=== PATIENT | female | born 1970 | race American Indian/Alaskan Native ===

== ENCOUNTER 2020-05-28 01:31 | Emergency (ER) | payer OTHER ==
[~2020-05-28 01:31] MED LIST: EPINEPHrine 1 MG/10 ML SYRINGE ONE; SODIUM BICARB 8.4% 50 MEQ/50 ML SYRINGE IV ONE
[2020-05-28] MEDS ORDERED: NORepinephrine/NS 4 MG-250 ML 4 MG/250 ML BAG IV SCH (01:45)
[2020-05-28] MEDS ORDERED: SODIUM CHLORIDE 0.9% 1000 ML 1,000 ML IV ONE (01:55)
[2020-05-28] MEDS ORDERED: LIP THERAPY VASELINE TP PRN (02:07)
[2020-05-28] MEDS ORDERED: MINERAL OIL/PETROLATUM, WHITE OPHTH OINT 3.5 GM OU PRN (02:07)
[2020-05-28] MEDS ORDERED: EPINEPHrine 1 MG/1 ML 8 MG in SODIUM CHLORIDE 0.9% 250ML 242 ML IV ONE (02:18)
--- NOTE | 2020-05-28 02:25 | Emergency Department Report ---
HPI - General Chief Complaint: Cardiac Arrest/CPR Time Seen by Provider: 05/28/20 02:06 - HPI HPI: This is a 50-year-old -[place] female presents to the emergency department from home in cardiac arrest. Apparently the patient is bedbound and that the patient was witnessed to go unresponsive just prior to the EMS call. EMS found the patient pulseless and apneic. They initiated ACLS protocol. She was intubated, and intraosseous line was placed, and the patient received chest compressions. She received 2 rounds of epinephrine and 1 round of sodium bicarbonate. There was no return of spontaneous circulation and the patient was in PEA. She has a past medical history of hypertension, end-stage renal disease on hemodialysis, diabetes, and cardiomyopathy. ED Past Medical Hx - Past Medical History Hx Hypertension: Yes Hx Congestive Heart Failure: Yes Hx Diabetes: Yes Hx Asthma: No Hx COPD: No Additional medical history: CAD - Surgical History Hx Coronary Stent: Yes - Social History Smoking Status: Never Smoker - Medications Home Medications: Home Medications Medication Instructions Recorded Confirmed Last Taken Type Amoxicillin/K Clav Tab [Augmentin 1 each PO Q12HR #10 tablet 08/24/13 Unknown Rx 875MG TAB] Insulin Aspart Prot/Aspart(Nf) 14 units SUB-Q QPM 30 Days units 08/24/13 Unknown Rx [NovoLOG Mix 70/30 VIAL] Insulin Aspart Prot/Aspart(Nf) 20 units SUB-Q QAM 30 Days units 08/24/13 Unknown Rx [NovoLOG Mix 70/30 VIAL] Saccharomyces Boulardii (Nf) 250 mg PO Q12HR #30 capsule 08/24/13 Unknown Rx [Florastor] lisinopriL [Zestril TAB] 2.5 mg PO QDAY #30 tablet 08/24/13 Unknown Rx oxyCODONE /ACETAMINOPHEN [Percocet 1 tab PO Q6H PRN #14 tablet 08/24/13 Unknown Rx 5/325 mg] ED Review of Systems ROS: Stated complaint: CARDIAC ARREST Other details as noted in HPI Comment: Unobtainable due to pts medical conditions Physical Exam - Physical Exam Physical Exam: GENERAL: Patient is ill-appearing and unresponsive. HENT: Normocephalic. Atraumatic. EYES: Pupils are fixed and dilated. NECK: Supple. Trachea appears midline. CHEST/LUNGS: There are no spontaneous respirations. HEART/CARDIOVASCULAR: There are no spontaneous heart sounds. ABDOMEN: Abdomen is soft. There is no abdominal distention. SKIN: Skin is cool but dry. NEURO: Unresponsive. Does not withdraw to painful stimuli. Does not follow any commands. MUSCULOSKELETAL: There is no obvious deformity. There is no evidence of acute injury. No palpable femoral or radial pulses. ED Course - Reevaluation(s) Reevaluation #1: 05/28/20 06:30 Lab Results 05/28/20 05/28/20 05/28/20 Range/Units 03:11 04:33 Unknown WBC 27.8 H (4.5-11.0) K/mm3 RBC 3.07 L (3.65-5.03) M/mm3 Hgb 9.0 L (10.1-14.3) gm/dl Hct 31.8 (30.3-42.9) % MCV 104 H (79-97) fl MCH 29 (28-32) pg MCHC 28 L (30-34) % RDW 18.5 H (13.2-15.2) % Plt Count 113 L (140-440) K/mm3 Add Manual Diff Complete Total Counted 100 Seg Neuts % (Manual) 79.0 H (40.0-70.0) % Band Neutrophils % 6.0 % Lymphocytes % (Manual) 9.0 L (13.4-35.0) % Reactive Lymphs % (Man) 0 % Monocytes % (Manual) 4.0 (0.0-7.3) % Eosinophils % (Manual) 1.0 (0.0-4.3) % Basophils % (Manual) 0 (0.0-1.8) % Metamyelocytes % 1.0 % Myelocytes % 0 % Promyelocytes % 0 % Blast Cells % 0 % Nucleated RBC % 2.0 H (0.0-0.9) % Seg Neutrophils # Man 22.0 H (1.8-7.7) K/mm3 Band Neutrophils # 1.7 K/mm3 Lymphocytes # (Manual) 2.5 (1.2-5.4) K/mm3 Abs React Lymphs (Man) 0.0 K/mm3 Monocytes # (Manual) 1.1 H (0.0-0.8) K/mm3 Eosinophils # (Manual) 0.3 (0.0-0.4) K/mm3 Basophils # (Manual) 0.0 (0.0-0.1) K/mm3 Metamyelocytes # 0.3 K/mm3 Myelocytes # 0.0 K/mm3 Promyelocytes # 0.0 K/mm3 Blast Cells # 0.0 K/mm3 WBC Morphology Not Reportable Hypersegmented Neuts Not Reportable Hyposegmented Neuts Not Reportable Hypogranular Neuts Not Reportable Smudge Cells Not Reportable Toxic Granulation Not Reportable Toxic Vacuolation Not Reportable Dohle Bodies Not Reportable Pelger-Huet Anomaly Not Reportable Umair Rods Not Reportable Platelet Estimate Consistent w auto Clumped Platelets Not Reportable Plt Clumps, EDTA Not Reportable Large Platelets Not Reportable Giant Platelets Not Reportable Platelet Satelliting Not Reportable Plt Morphology Comment Not Reportable RBC Morphology Not Reportable Dimorphic RBCs Not Reportable Polychromasia Not Reportable Hypochromasia 1+ Poikilocytosis Not Reportable Anisocytosis 1+ Microcytosis Not Reportable Macrocytosis 1+ Spherocytes Rare Pappenheimer Bodies Not Reportable Sickle Cells Not Reportable Target Cells Few Tear Drop Cells Not Reportable Ovalocytes Not Reportable Helmet Cells Not Reportable Zamora-Elmo Bodies Not Reportable [place] Rings Not Reportable Ward Cells Not Reportable Bite Cells Not Reportable Crenated Cell Not Reportable Elliptocytes Not Reportable Acanthocytes (Spur) Not Reportable Rouleaux Not Reportable Hemoglobin C Crystals Not Reportable Schistocytes Not Reportable Malaria parasites Not Reportable Amanuel Bodies Not Reportable Hem Pathologist Commnt No PT (12.2-14.9) Sec. INR (0.87-1.13) APTT (24.2-36.6) Sec. ABG pH 7.013 L (7.320-7.450) POC ABG pCO2 39.2 (32.0-48.0) mmHg POC ABG pO2 313.9 H (83-108) mmHg POC ABG HCO3 9.7 POC ABG Base Excess -20.3 ABG Hemoglobin 10.4 L (12.0-17.5) ABG Sodium 139.4 (136.0-145.0) mmol/L ABG Potassium 4.9 H (3.40-4.50) mmol/L ABG Chloride 98.0 (98-107) mmol/L ABG Glucose < 65 L (65-95) mg/dL FiO2 100 Sodium (137-145) mmol/L Potassium (3.6-5.0) mmol/L Chloride (98-107) mmol/L Carbon Dioxide (22-30) mmol/L Anion Gap mmol/L BUN (7-17) mg/dL Creatinine (0.6-1.2) mg/dL Estimated GFR ml/min BUN/Creatinine Ratio % Glucose (65-100) mg/dL Lactic Acid 25.70 H* (0.7-2.0) mmol/L Calcium (8.4-10.2) mg/dL Total Bilirubin (0.1-1.2) mg/dL AST (5-40) units/L ALT (7-56) units/L Alkaline Phosphatase (35-129) units/L Ammonia (25-60) umol/L Troponin T (0.00-0.029) ng/mL Total Protein (6.3-8.2) g/dL Albumin (3.9-5) g/dL Albumin/Globulin Ratio % Triglycerides (2-149) mg/dL Cholesterol (50-199) mg/dL LDL Cholesterol Direct (50-130) mg/dL HDL Cholesterol (40-59) mg/dL Cholesterol/HDL Ratio % TSH (0.270-4.200) mlU/mL Arterial Blood Glucose < 65 L (65-95) mg/dL Arterial Blood Ionized Calcium 4.2 L (4.6-5.3) mg/dL Plasma/Serum Alcohol (0-0.07) % 05/28/20 05/28/20 05/28/20 Range/Units Unknown Unknown Unknown WBC (4.5-11.0) K/mm3 RBC (3.65-5.03) M/mm3 Hgb (10.1-14.3) gm/dl Hct (30.3-42.9) % MCV (79-97) fl MCH (28-32) pg MCHC (30-34) % RDW (13.2-15.2) % Plt Count (140-440) K/mm3 Add Manual Diff Total Counted Seg Neuts % (Manual) (40.0-70.0) % Band Neutrophils % % Lymphocytes % (Manual) (13.4-35.0) % Reactive Lymphs % (Man) % Monocytes % (Manual) (0.0-7.3) % Eosinophils % (Manual) (0.0-4.3) % Basophils % (Manual) (0.0-1.8) % Metamyelocytes % % Myelocytes % % Promyelocytes % % Blast Cells % % Nucleated RBC % (0.0-0.9) % Seg Neutrophils # Man (1.8-7.7) K/mm3 Band Neutrophils # K/mm3 Lymphocytes # (Manual) (1.2-5.4) K/mm3 Abs React Lymphs (Man) K/mm3 Monocytes # (Manual) (0.0-0.8) K/mm3 Eosinophils # (Manual) (0.0-0.4) K/mm3 Basophils # (Manual) (0.0-0.1) K/mm3 Metamyelocytes # K/mm3 Myelocytes # K/mm3 Promyelocytes # K/mm3 Blast Cells # K/mm3 WBC Morphology Hypersegmented Neuts Hyposegmented Neuts Hypogranular Neuts Smudge Cells Toxic Granulation Toxic Vacuolation Dohle Bodies Pelger-Huet Anomaly Umair Rods Platelet Estimate Clumped Platelets Plt Clumps, EDTA Large Platelets Giant Platelets Platelet Satelliting Plt Morphology Comment RBC Morphology Dimorphic RBCs Polychromasia Hypochromasia Poikilocytosis Anisocytosis Microcytosis Macrocytosis Spherocytes Pappenheimer Bodies Sickle Cells Target Cells Tear Drop Cells Ovalocytes Helmet Cells Zamora-Elmo Bodies [place] Rings Ward Cells Bite Cells Crenated Cell Elliptocytes Acanthocytes (Spur) Rouleaux Hemoglobin C Crystals Schistocytes Malaria parasites Amanuel Bodies Hem Pathologist Commnt PT 21.3 H (12.2-14.9) Sec. INR 1.80 H (0.87-1.13) APTT 55.4 H (24.2-36.6) Sec. ABG pH (7.320-7.450) POC ABG pCO2 (32.0-48.0) mmHg POC ABG pO2 (83-108) mmHg POC ABG HCO3 POC ABG Base Excess ABG Hemoglobin (12.0-17.5) ABG Sodium (136.0-145.0) mmol/L ABG Potassium (3.40-4.50) mmol/L ABG Chloride (98-107) mmol/L ABG Glucose (65-95) mg/dL FiO2 Sodium 140 (137-145) mmol/L Potassium 4.5 (3.6-5.0) mmol/L Chloride 91.5 L (98-107) mmol/L Carbon Dioxide 12 L (22-30) mmol/L Anion Gap 41 mmol/L BUN 54 H (7-17) mg/dL Creatinine 4.4 H (0.6-1.2) mg/dL Estimated GFR 13 ml/min BUN/Creatinine Ratio 12 % Glucose 48 L (65-100) mg/dL Lactic Acid 19.30 H* (0.7-2.0) mmol/L Calcium 8.9 (8.4-10.2) mg/dL Total Bilirubin 4.40 H (0.1-1.2) mg/dL AST 110 H (5-40) units/L ALT 36 (7-56) units/L Alkaline Phosphatase 1164 H (35-129) units/L Ammonia (25-60) umol/L Troponin T 0.258 H* (0.00-0.029) ng/mL Total Protein 7.2 (6.3-8.2) g/dL Albumin 2.1 L (3.9-5) g/dL Albumin/Globulin Ratio 0.4 % Triglycerides 85 (2-149) mg/dL Cholesterol 164 (50-199) mg/dL LDL Cholesterol Direct 14 L (50-130) mg/dL HDL Cholesterol 22 L (40-59) mg/dL Cholesterol/HDL Ratio 7.45 % TSH (0.270-4.200) mlU/mL Arterial Blood Glucose (65-95) mg/dL Arterial Blood Ionized Calcium (4.6-5.3) mg/dL Plasma/Serum Alcohol (0-0.07) % 05/28/20 05/28/20 05/28/20 Range/Units Unknown Unknown Unknown WBC (4.5-11.0) K/mm3 RBC (3.65-5.03) M/mm3 Hgb (10.1-14.3) gm/dl Hct (30.3-42.9) % MCV (79-97) fl MCH (28-32) pg MCHC (30-34) % RDW (13.2-15.2) % Plt Count (140-440) K/mm3 Add Manual Diff Total Counted Seg Neuts % (Manual) (40.0-70.0) % Band Neutrophils % % Lymphocytes % (Manual) (13.4-35.0) % Reactive Lymphs % (Man) % Monocytes % (Manual) (0.0-7.3) % Eosinophils % (Manual) (0.0-4.3) % Basophils % (Manual) (0.0-1.8) % Metamyelocytes % % Myelocytes % % Promyelocytes % % Blast Cells % % Nucleated RBC % (0.0-0.9) % Seg Neutrophils # Man (1.8-7.7) K/mm3 Band Neutrophils # K/mm3 Lymphocytes # (Manual) (1.2-5.4) K/mm3 Abs React Lymphs (Man) K/mm3 Monocytes # (Manual) (0.0-0.8) K/mm3 Eosinophils # (Manual) (0.0-0.4) K/mm3 Basophils # (Manual) (0.0-0.1) K/mm3 Metamyelocytes # K/mm3 Myelocytes # K/mm3 Promyelocytes # K/mm3 Blast Cells # K/mm3 WBC Morphology Hypersegmented Neuts Hyposegmented Neuts Hypogranular Neuts Smudge Cells Toxic Granulation Toxic Vacuolation Dohle Bodies Pelger-Huet Anomaly Umair Rods Platelet Estimate Clumped Platelets Plt Clumps, EDTA Large Platelets Giant Platelets Platelet Satelliting Plt Morphology Comment RBC Morphology Dimorphic RBCs Polychromasia Hypochromasia Poikilocytosis Anisocytosis Microcytosis Macrocytosis Spherocytes Pappenheimer Bodies Sickle Cells Target Cells Tear Drop Cells Ovalocytes Helmet Cells Zamora-Elmo Bodies [place] Rings [place] Cells Bite Cells Crenated Cell Elliptocytes Acanthocytes (Spur) Rouleaux Hemoglobin C Crystals Schistocytes Malaria parasites Amanuel Bodies Hem Pathologist Commnt PT (12.2-14.9) Sec. INR (0.87-1.13) APTT (24.2-36.6) Sec. ABG pH (7.320-7.450) POC ABG pCO2 (32.0-48.0) mmHg POC ABG pO2 (83-108) mmHg POC ABG HCO3 POC ABG Base Excess ABG Hemoglobin (12.0-17.5) ABG Sodium (136.0-145.0) mmol/L ABG Potassium (3.40-4.50) mmol/L ABG Chloride (98-107) mmol/L ABG Glucose (65-95) mg/dL FiO2 Sodium (137-145) mmol/L Potassium (3.6-5.0) mmol/L Chloride (98-107) mmol/L Carbon Dioxide (22-30) mmol/L Anion Gap mmol/L BUN (7-17) mg/dL Creatinine (0.6-1.2) mg/dL Estimated GFR ml/min BUN/Creatinine Ratio % Glucose (65-100) mg/dL Lactic Acid (0.7-2.0) mmol/L Calcium (8.4-10.2) mg/dL Total Bilirubin (0.1-1.2) mg/dL AST (5-40) units/L ALT (7-56) units/L Alkaline Phosphatase (35-129) units/L Ammonia 502.0 H (25-60) umol/L Troponin T (0.00-0.029) ng/mL Total Protein (6.3-8.2) g/dL Albumin (3.9-5) g/dL Albumin/Globulin Ratio % Triglycerides (2-149) mg/dL Cholesterol (50-199) mg/dL LDL Cholesterol Direct (50-130) mg/dL HDL Cholesterol (40-59) mg/dL Cholesterol/HDL Ratio % TSH 8.270 H (0.270-4.200) mlU/mL Arterial Blood Glucose (65-95) mg/dL Arterial Blood Ionized Calcium (4.6-5.3) mg/dL Plasma/Serum Alcohol < 0.01 (0-0.07) % - Central Line Placement Right Femoral Consent Obtained: emergent situation Time Out Performed: Yes Patient Placed on Monitor/Pulse Ox: Yes Prep: mask, gown, gloves Central Line Prep: Chlorhexidine scrub Ultrasound Used for Placement: Yes Central Line Lumen Inserted: triple Bloods Obtained for Lab: Yes Central Line Position: good blood return, all ports aspirated, flus, sutured in place with nyl Dressing Applied: Tegaderm, sterile gauze/tape Patient Tolerated Procedure: well Complications: none ED Medical Decision Making - Lab Data Result diagrams: 05/28/20 Unknown 05/28/20 Unknown - EKG Data -: EKG Interpreted by Me - EKG Data Interpretation: other (Atrial fibrillation at 111 bpm, PVCs, left axis deviation, incomplete right bundle branch block and left anterior fascicular block, Q waves to the anteroseptal leads) - Radiology Data Radiology results: report reviewed Chest single view INDICATION: Dyspnea. IMPRESSION: Endotracheal tube terminates about 4 cm above the bhargav. Esophagogastric tube terminates within the upper stomach. PermCath terminates in the SVC/right atrial junction. The lungs are grossly clear. Cardiomegaly. - Medical Decision Making This patient presents to the emergency department in cardiac arrest after she complained of shortness of breath throughout the day and then appeared in distress and went unresponsive in front of family. Patient was intubated by EMS and an intraosseous line was placed and they began ACLS protocol. There was no return of spontaneous circulation in route. The patient came to our emergency department and was placed in bed/room 21 where we continued ACLS protocol including bag valve ventilation, chest compressions. The patient was given a dose of epinephrine, sodium bicarbonate, and calcium and we got return of spontaneous circulation. Immediately upon ROSC, I placed a right femoral central venous catheter EKG showed atrial fibrillation but no morphology consistent with ST elevation myocardial infarction. Chest x-ray was done that did not show any obvious signs of pneumonia, pleural effusions, and there was no pneumothorax. The patient's labs show multiple abnormalities. There is a leukocytosis of 27,000. Anemia with a hemoglobin of 9. Some mild thrombocytopenia with platelets of 113. She has renal insufficiency consistent with her end-stage renal disease on hemodialysis. There is elevated ammonia level, alk phos. The patient has a lactic acidosis with a lactic acid of 19, and then later 25. She has an elevated troponin level. Patient has been in the emergency department for about 4.5 hours and there have been many episodes in which the patient went pulseless and we did ACLS protocol. The patient received multiple rounds of epinephrine, sodium bicarbonate, calcium. She arrived on dobutamine. Eventually the patient was on dobutamine, Levophed, epinephrine and vasopressin drips. I spoke to the patient's multiple times throughout her ED course and explained the critical nature of this patient. He was given a chance to come and see her at bedside. Overall I believe the patient had 9 different episodes in which she went pulseless and we did ACLS protocol and there was ROSC. The patient was in PEA until the very last pulseless episode, in which she was in asystole. Pupils were fixed and dilated. There are no spontaneous heart or breath sounds. I used the bedside ultrasound and there was no movement or squeeze of the heart. Time of was called at 0548. Critical Care Time: Yes Critical care time in (mins) excluding proc time.: 80 Critical care attestation.: If time is entered above; I have spent that time in minutes in the direct care of this critically ill patient, excluding procedure time. Critical care time is spent on this patient in doing her initial evaluation, multiple reevaluations, supervision of ACLS protocol, ordering and interpretation of labs and imaging, treatment of her hypotension with multiple different vasopressors, multiple discussions with the patient's . This does not include the time spent doing the central line procedure. Critical Care Time: 80 minutes ED Disposition Clinical Impression: Cardiac arrest, Lactic acidosis, ESRD on hemodialysis, Elevated troponin Acute respiratory failure Qualifiers: Respiratory failure complication: unspecified whether with hypoxia or hypercapnia Qualified Code(s): J96.00 - Acute respiratory failure, unspecified whether with hypoxia or hypercapnia Leukocytosis Qualifiers: Leukocytosis type: unspecified Qualified Code(s): D72.829 - Elevated white blood cell count, unspecified Disposition: DC-20 Is pt being admited?: No Time of Disposition: 06:30
--- NOTE | 2020-05-28 02:35 | XRay Report ---
Chest single view INDICATION: Dyspnea. IMPRESSION: Endotracheal tube terminates about 4 cm above the bhargav. Esophagogastric tube terminates within the upper stomach. PermCath terminates in the SVC/right atrial junction. The lungs are grossl y clear. Cardiomegaly. Signer Name: Nura Parsons MD Signed: 05/28/2020 2:30 AM Workstation Name: [id number]
[2020-05-28 02:51] LABS: Mean Corpuscular HGB Conc 28 % (30-34); Mean Corpuscular Volume 104 fl (79-97); Platelet Count 113 K/mm3 (140-440); Red Blood Count 3.07 M/mm3 (3.65-5.03); Red Cell Distribution Width 18.5 % (13.2-15.2)
[2020-05-28 02:54] LABS: Hematocrit 31.8 % (30.3-42.9)
[2020-05-28 03:01] LABS: INR 1.8 (0.87-1.13)
[2020-05-28 03:02] LABS: Partial Thromboplastin Time 55.4 Sec. (24.2-36.6)
[2020-05-28 03:16] LABS: Albumin 2.1 g/dL (3.9-5); Calcium 8.9 mg/dL (8.4-10.2)
[2020-05-28] MEDS ORDERED: DEXTROSE 50% IN WATER (25GM) 50 ML SYRINGE IV ONE ×2 (03:30→03:33)
[2020-05-28] MEDS ORDERED: VASOPRESSIN 20 UNIT in SODIUM CHLORIDE 0.9% 100 ML IV SCH (05:00)
[2020-05-28] MEDS ORDERED: SODIUM CHLORIDE 0.9% 1000 ML 1,000 ML ONE (05:18)
[2020-05-28 05:49] VITALS: BP 64/44
[2020-05-28 05:57] LABS: Chol/HDL Ratio 7.45 %
[2020-05-28 06:12] LABS: Band Neutrophils # (Manual) 1.7 K/mm3; Basophils % (Manual) 0 % (0.0-1.8); Total Cells Counted 100
[2020-05-28 06:13] LABS: Anisocytosis 1+; Macrocytosis 1+; Target Cells Few
[2020-05-28 06:14] LABS: Hypochromasia 1+; Platelet Estimate Consistent w Auto; Spherocytes Rare
== END 2020-05-28 16:00 ==
LOC: ED 01:31
DX: E11.22 Type 2 diabetes mellitus with diabetic chronic kidney disease (principal); I13.2 Hypertensive heart and chronic kidney disease with heart failure and with stage 5 chronic kidney disease, or end stage renal disease; I50.9 Heart failure, unspecified; N18.6 End stage renal disease; Z99.2 Dependence on renal dialysis; Z79.899 Other long term (current) drug therapy; Z79.4 Long term (current) use of insulin; Z95.818 Presence of other cardiac implants and grafts
CPT/HCPCS: 36415; 36556; 71045; 80053; 80061; 82140; 82805; 84443; 84484; 85007; 85025; 85610; 85730; 87070; 87186; 87205; 93005; 96360; 96361; 99291; J0171; J7030; J7050; 80320; 94002; G0480